=== PATIENT | female | born 1990 | race American Indian/Alaskan Native ===

== ENCOUNTER 2017-07-01 10:13 | Emergency (ER) | payer OTHER ==
[2017-07-01 10:24] VITALS: BP 146/82
[2017-07-01 11:16] LABS: Basophils % (Auto) 0.2 % (0.0-1.8); Eosinophils % (Auto) 0.1 % (0.0-4.3); Hematocrit 40.8 % (30.3-42.9); Hemoglobin 13.8 gm/dl (10.1-14.3); Lymphocytes # (Auto) 1.1 K/mm3 (1.2-5.4); Mean Corpuscular HGB Conc 34 % (30-34); Mean Corpuscular Hemoglobin 31 pg (28-32); Mean Corpuscular Volume 92 fl (79-97); Monocytes # (Auto) 0.3 K/mm3 (0.0-0.8); Monocytes % (Auto) 3.8 % (0.0-7.3); Platelet Count 415 K/mm3 (140-440); Red Blood Count 4.42 M/mm3 (3.65-5.03); Red Cell Distribution Width 14.1 % (13.2-15.2)
[2017-07-01 11:23] LABS: Bilirubin,Urine NEG (Negative); Blood,Urine MOD (Negative); Color,Urine Yellow (Yellow); Mucus,Urine 3+ /HPF
[2017-07-01 11:44] LABS: Alanine Aminotransferase 27 units/L (7-56); Albumin 4.7 g/dL (3.9-5); BUN/Creatinine Ratio 19; Blood Urea Nitrogen 13 mg/dL (7-17); Calcium 9.7 mg/dL (8.4-10.2); Hemolysis Index 7
--- NOTE | 2017-07-01 12:03 | Emergency Department Report ---
Blank Doc - Documentation Documentation: Patient presents to the emergency department for rash of her genital region along with some diffuse abdominal pain that has been present for 5 days. The patient states the rash is completely resolved now. She is sexually active and did not start using condoms until the rash appeared. Further workup will be done by a UBALDO
--- NOTE | 2017-07-01 12:12 | Emergency Department Report ---
Blank Doc - Documentation Documentation: Please disregard the patient referring to a rash in additional to area. That note was not meant for this patient. The patient's chief complaint is right upper quadrant and epigastric abdominal pain. Patient states she has a history of gallstones that was diagnosed last year and patient does not have her gallbladder removed because she was at that time. Patient states she' s had some right upper quadrant abdominal pain for the last month before the last 3 days and has become increasingly worse along with nausea vomiting. Patient denies fever or diarrhea. Care will be turned over to the UBALDO
[2017-07-01] MEDS ORDERED: MORPHINE IM ONE (12:41)
[2017-07-01] MEDS ORDERED: ZOFRAN ODT PO ONE (12:42)
--- NOTE | 2017-07-01 14:00 | Ultrasound Report ---
ULTRASOUND ABDOMEN LIMITED: TECHNIQUE: Transabdominal ultrasound with color Doppler interrogation. HISTORY: right upper quadrant abdominal pain. COMPARISON: none. FINDINGS: LIVER: Normal. BILIARY SYSTEM: There are multiple shadowing gallstones within the gallbladder. No abnormal distention, wall thickening or surrounding fluid. The CBD measures 3 mm. PANCREAS: Normal. RIGHT KIDNEY: Normal. PROXIMAL AORTA: Normal. ASCITES: None. IMPRESSION: Cholelithiasis.
--- NOTE | 2017-07-01 15:08 | Emergency Department Report ---
ED Abdominal Pain HPI - General Chief Complaint: Abdominal Pain Stated Complaint: VOMITING Time Seen by Provider: 07/01/17 11:52 Source: patient Mode of arrival: Wheelchair Limitations: No Limitations - History of Present Illness MD Complaint: abdominal pain Location: RUQ Migration to: no migration Severity scale (0 -10): 4 Quality: cramping, aching Consistency: intermittent Associated Symptoms: nausea, vomiting. denies: diarrhea, fever, chills, constipation - Related Data Previous Rx's Medication Instructions Recorded Last Taken Type Acetaminophen/Codeine [Tylenol 1 tab PO Q6H PRN #12 tab 07/01/17 Unknown Rx /Codeine # 3 tab] Ondansetron [Zofran ODT TAB] 8 mg PO Q12HR #40 tab.rapdis 07/01/17 Unknown Rx Allergies Allergy/AdvReac Type Severity Reaction Status Date / Time No Known Allergies Allergy Unverified 07/01/17 10:24 ED Review of Systems ROS: Stated complaint: VOMITING Other details as noted in HPI ED Past Medical Hx - Past Medical History Previous Medical History?: No - Surgical History Past Surgical History?: No - Social History Smoking Status: Current Every Day Smoker Substance Use Type: None, Alcohol - Medications Home Medications: Home Medications Medication Instructions Recorded Confirmed Last Taken Type Acetaminophen/Codeine [Tylenol 1 tab PO Q6H PRN #12 tab 07/01/17 Unknown Rx /Codeine # 3 tab] Ondansetron [Zofran ODT TAB] 8 mg PO Q12HR #40 tab.rapdis 07/01/17 Unknown Rx ED Physical Exam - General Limitations: No Limitations ED Course Vital Signs 07/01/17 10:20 Temperature 97.8 F Pulse Rate 72 Respiratory 16 Rate Blood Pressure 146/82 O2 Sat by Pulse 98 Oximetry ED Medical Decision Making - Lab Data Result diagrams: 07/01/17 10:52 07/01/17 10:52 - Radiology Data Radiology results: report reviewed, image reviewed ULTRASOUND ABDOMEN LIMITED: TECHNIQUE: Transabdominal ultrasound with color Doppler interrogation. HISTORY: right upper quadrant abdominal pain. COMPARISON: none. FINDINGS: LIVER: Normal. BILIARY SYSTEM: There are multiple shadowing gallstones within the gallbladder. No abnormal distention, wall thickening or surrounding fluid. The CBD measures 3 mm. PANCREAS: Normal. RIGHT KIDNEY: Normal. PROXIMAL AORTA: Normal. ASCITES: None. IMPRESSION: Cholelithiasis. Transcribed By: TTR Dictated By: IDA HUFF JR, MD Electronically Authenticated By: IDA HUFF JR, MD Signed Date/Time: 07/01/17 1351 Critical care attestation.: If time is entered above; I have spent that time in minutes in the direct care of this critically ill patient, excluding procedure time. ED Disposition Clinical Impression: Cholelithiasis Qualifiers: Cholelithiasis location: gallbladder Cholecystitis presence: without cholecystitis Biliary obstruction: without biliary obstruction Qualified Code(s) : K80.20 - Calculus of gallbladder without cholecystitis without obstruction Disposition: TO HOME OR SELFCARE Is pt being admited?: No Does the pt Need Aspirin: No Condition: Stable Instructions: Biliary Colic (ED), Abdominal Pain (ED) Additional Instructions: Make sure to follow up with the primary care physician as discussed. Take all your medications as you've been prescribed. If you have any worsening symptoms or develop new symptoms please return to ED immediately. Prescriptions: Acetaminophen/Codeine [Tylenol /Codeine # 3 tab] 1 tab PO Q6H PRN #12 tab PRN Reason: Pain Ondansetron [Zofran ODT TAB] 8 mg PO Q12HR #40 tab.rapdis Referrals: PRIMARY CARE, [Primary Care Provider] - 3-5 Days [facility] [Provider Group] - 3-5 Days [facility] [Provider Group] - 3-5 Days Forms: Accompanied Note, Work/School Release Form(ED) Time of Disposition: :18
[2017-07-01] MEDS ORDERED: NORCO 5/325 PO ONE (15:41)
== END 2017-07-01 15:50 | disposition home or self-care (01) ==
LOC: ED 10:13
DX: K80.20 Calculus of gallbladder without cholecystitis without obstruction (principal); F17.200 Nicotine dependence, unspecified, uncomplicated
CPT/HCPCS: 36415; 76705; 80053; 81001; 83690; 84703; 85025; 96372; 99284; J2270; Q0162

== ENCOUNTER 2017-07-17 16:56 | Emergency (ER) | payer SELFPAY ==
[2017-07-17 17:07] VITALS: BP 104/64
--- NOTE | 2017-07-17 18:22 | Emergency Department Report ---
ED Abdominal Pain HPI - General Chief Complaint: Abdominal Pain Stated Complaint: SEVERE ABD PAIN Time Seen by Provider: 07/17/17 18:22 Source: patient Mode of arrival: Ambulatory Limitations: No Limitations - History of Present Illness MD Complaint: abdominal pain - Related Data Previous Rx's Medication Instructions Recorded Last Taken Type Acetaminophen/Codeine [Tylenol 1 tab PO Q6H PRN #12 tab 07/01/17 Unknown Rx /Codeine # 3 tab] Ondansetron [Zofran ODT TAB] 8 mg PO Q12HR #40 tab.rapdis 07/01/17 Unknown Rx Allergies Allergy/AdvReac Type Severity Reaction Status Date / Time No Known Allergies Allergy Unverified 07/01/17 10:24 ED Review of Systems ROS: Stated complaint: SEVERE ABD PAIN Other details as noted in HPI ED Past Medical Hx - Past Medical History Additional medical history: Gallstones - Surgical History Past Surgical History?: No - Social History Smoking Status: Current Every Day Smoker Substance Use Type: None - Medications Home Medications: Home Medications Medication Instructions Recorded Confirmed Last Taken Type Acetaminophen/Codeine [Tylenol 1 tab PO Q6H PRN #12 tab 07/01/17 Unknown Rx /Codeine # 3 tab] Ondansetron [Zofran ODT TAB] 8 mg PO Q12HR #40 tab.rapdis 07/01/17 Unknown Rx ED Physical Exam - General Limitations: No Limitations ED Course Vital Signs 07/17/17 17:03 Temperature 98.6 F Pulse Rate 84 Blood Pressure 104/64 O2 Sat by Pulse 99 Oximetry Critical care attestation.: If time is entered above; I have spent that time in minutes in the direct care of this critically ill patient, excluding procedure time. ED Disposition Condition: Stable Instructions: Abdominal Pain (ED) Referrals: PRIMARY CARE, [Primary Care Provider] - 3-5 Days
[2017-07-17] MEDS ORDERED: ZOFRAN IV ONE (18:38)
[2017-07-17] MEDS ORDERED: NACL 0.9% 1000 ML 1,000 ML IV ONE (18:38)
[2017-07-17] MEDS ORDERED: MORPHINE IV ONE ×2 (18:39→21:05)
--- NOTE | 2017-07-17 18:41 | Emergency Department Report ---
Chief Complaint: Abdominal Pain Stated Complaint: SEVERE ABD PAIN Time Seen by Provider: 07/17/17 18:22 - HPI History of Present Illness: 26-year-old female past medical history cholelithiasis presents with complaint of epigastric pain. Patient states she was diagnosed with cholelithiasis approximately 3 weeks ago. States that she has been taking medicine for the pain but it is not completely subsided. Patient states that this episode intensified within the last 48 hours and has associated chills nausea and severe epigastric pain. Last menstrual period 07/06/17. Patient is awake alert and oriented 3. Pain currently 10/27 - ROS Review of Systems: Approximately 2-3 weeks of persistent epigastric pain and right upper quadrant pain - Exam Vital Signs: Vital Signs 07/17/17 17:03 Temperature 98.6 F Pulse Rate 84 Blood Pressure 104/64 O2 Sat by Pulse 99 Oximetry Physical Exam: Heart S1-S2, lungs clear to auscultation. Abdomen is tender in epigastric and right upper quadrant region. Positive Lomax sign MSE screening note: Focused history and physical exam performed. Due to findings the following was ordered: Screening Assessment/Plan/Differential Dx: Abdominal pain, biliary colic versus cholelithiasis versus pancreatitis 1- This initial assessment/diagnostic orders/clinical plan/ treatment(s) is/are subject to change based on pt's health status, clinical progression and re- assessment by fellow clinical providers in the ED. Further treatment and workup at subsequent clinical provers discretion. Patient/guardians urged not to elope from ED as their condition may be serious if not clinically assessed and managed. 2-abdominal labs order set, IV fluid, nothing by mouth, Zofran, analgesics 3-right upper quadrant ultrasound+CT with IV contrast 4-nothing by mouth for now ED Disposition for MSE Condition: Stable Instructions: Abdominal Pain (ED) Referrals: PRIMARY CARE, [Primary Care Provider] - 3-5 Days
[2017-07-17 18:57] LABS: Bilirubin,Urine NEG (Negative); Blood,Urine NEG (Negative); Color,Urine Straw (Yellow); HCG Qualitative,Urine Negative (Negative); Protein,Urine <15 mg/dL mg/dL (Negative); Urobilinogen,Urine < 2.0 mg/dL (<2.0); WBC,Urine < 1.0 /HPF (0.0-6.0)
[2017-07-17 19:03] LABS: Basophils % (Auto) 0.4 % (0.0-1.8); Eosinophils # (Auto) 0.2 K/mm3 (0.0-0.4); Eosinophils % (Auto) 1.9 % (0.0-4.3); Hematocrit 39.1 % (30.3-42.9); Hemoglobin 12.6 gm/dl (10.1-14.3); Lymphocytes # (Auto) 3.2 K/mm3 (1.2-5.4); Lymphocytes % (Auto) 28.1 % (13.4-35.0); Mean Corpuscular HGB Conc 32 % (30-34); Mean Corpuscular Hemoglobin 30 pg (28-32); Mean Corpuscular Volume 94 fl (79-97); Monocytes # (Auto) 0.7 K/mm3 (0.0-0.8); Monocytes % (Auto) 5.8 % (0.0-7.3); Platelet Count 527 K/mm3 (140-440); Red Blood Count 4.16 M/mm3 (3.65-5.03); Red Cell Distribution Width 13.7 % (13.2-15.2)
[2017-07-17 19:22] LABS: Alanine Aminotransferase 13 units/L (7-56); Albumin 4.7 g/dL (3.9-5); BUN/Creatinine Ratio 12; Blood Urea Nitrogen 7 mg/dL (7-17); Calcium 9.9 mg/dL (8.4-10.2); Hemolysis Index 4; Lipase 28 units/L (13-60)
[2017-07-17 19:31] LABS: Bilirubin,Direct < 0.2 mg/dL (0-0.2)
--- NOTE | 2017-07-17 20:54 | Emergency Department Report ---
ED Abdominal Pain HPI - General Chief Complaint: Abdominal Pain Stated Complaint: SEVERE ABD PAIN Time Seen by Provider: 07/17/17 18:22 Source: patient Mode of arrival: Ambulatory Limitations: No Limitations - History of Present Illness Initial Comments: This is a 26-year-old female with past medical history of cholelithiasis nontoxic, well nourished in appearance, no acute signs of distress presents to the ED with c/o of epigastric abdominal pain which radiates towards right flank region. Patient stated that she was diagnosed with cholelithiasis about 3 weeks ago and was taking Tylenol with Codeine which symptoms has resolved but patient finished her doses and pain is uncontrollable. Patient has associated symptoms of nausea, chills. Patient last motorcycle 07/06/2017. Patient denies any chest pain, shortness of breath, numbness, tingling, headache, stiff neck, or urinary symptoms. Patient denies any drug allergies. MD Complaint: abdominal pain -: days(s) (2) Location: RUQ, epigastric Radiation: R flank Migration to: no migration Severity: mild Severity scale (0 -10): 8 Quality: cramping, aching Consistency: constant Improves With: nothing Worsens With: nothing Associated Symptoms: nausea. denies: vomiting, diarrhea, fever, chills, constipation, dysuria, hematemesis, hematochezia, melena, hematuria, anorexia, syncope - Related Data Previous Rx's Medication Instructions Recorded Last Taken Type Acetaminophen/Codeine [Tylenol 1 tab PO Q6H PRN #12 tab 07/01/17 Unknown Rx /Codeine # 3 tab] Ondansetron [Zofran ODT TAB] 8 mg PO Q12HR #40 tab.rapdis 07/01/17 Unknown Rx Acetaminophen/Codeine [Tylenol 1 tab PO Q6H PRN #15 tab 07/17/17 Unknown Rx /Codeine # 3 tab] Ibuprofen [Motrin] 600 mg PO Q8H PRN #30 tablet 07/17/17 Unknown Rx Ondansetron [Zofran Odt] 4 mg PO Q8HR PRN #20 tab.rapdis 07/17/17 Unknown Rx Allergies Allergy/AdvReac Type Severity Reaction Status Date / Time No Known Allergies Allergy Unverified 07/01/17 10:24 ED Review of Systems ROS: Stated complaint: SEVERE ABD PAIN Other details as noted in HPI Constitutional: denies: chills, fever Eyes: denies: eye pain, eye discharge, vision change ENT: denies: ear pain, throat pain Respiratory: denies: cough, shortness of breath, wheezing Cardiovascular: denies: chest pain, palpitations Endocrine: no symptoms reported Gastrointestinal: abdominal pain, nausea. denies: vomiting, diarrhea Genitourinary: denies: urgency, dysuria, discharge Musculoskeletal: denies: back pain, joint swelling, arthralgia Skin: denies: rash, lesions Neurological: denies: headache, weakness, paresthesias Psychiatric: denies: anxiety, depression Hematological/Lymphatic: denies: easy bleeding, easy bruising ED Past Medical Hx - Past Medical History Additional medical history: Gallstones - Surgical History Past Surgical History?: No - Social History Smoking Status: Current Every Day Smoker Substance Use Type: None - Medications Home Medications: Home Medications Medication Instructions Recorded Confirmed Last Taken Type Acetaminophen/Codeine [Tylenol 1 tab PO Q6H PRN #12 tab 07/01/17 Unknown Rx /Codeine # 3 tab] Ondansetron [Zofran ODT TAB] 8 mg PO Q12HR #40 tab.rapdis 07/01/17 Unknown Rx Acetaminophen/Codeine [Tylenol 1 tab PO Q6H PRN #15 tab 07/17/17 Unknown Rx /Codeine # 3 tab] Ibuprofen [Motrin] 600 mg PO Q8H PRN #30 tablet 07/17/17 Unknown Rx Ondansetron [Zofran Odt] 4 mg PO Q8HR PRN #20 tab.rapdis 07/17/17 Unknown Rx ED Physical Exam - General Limitations: No Limitations General appearance: alert, in no apparent distress - Head Head exam: Present: atraumatic, normocephalic - Eye Eye exam: Present: normal appearance Pupils: Present: normal accommodation - ENT ENT exam: Present: normal exam, mucous membranes moist - Neck Neck exam: Present: normal inspection, full ROM. Absent: tenderness, meningismus - Respiratory Respiratory exam: Present: normal lung sounds bilaterally. Absent: respiratory distress, wheezes, rales, rhonchi, stridor - Cardiovascular Cardiovascular Exam: Present: regular rate, normal rhythm. Absent: systolic murmur, diastolic murmur, rubs, gallop - GI/Abdominal GI/Abdominal exam: Present: soft, tenderness (Right upper quad), normal bowel sounds. Absent: distended, guarding, rebound, rigid, diminished bowel sounds - Expanded GI/Abdominal Exam Expanded GI/Abdominal exam: Absent: psoas sign, obturator sign, heel tap sign, Lomax's sign, Rovsing's sign, tenderness at Mcburney's Point, ascites - Rectal Rectal exam: Present: deferred - Extremities Exam Extremities exam: Present: normal inspection, full ROM, normal capillary refill - Back Exam Back exam: Present: normal inspection, full ROM. Absent: tenderness, CVA tenderness (R), CVA tenderness (L), muscle spasm, paraspinal tenderness, vertebral tenderness, rash noted - Neurological Exam Neurological exam: Present: alert, oriented X3, normal gait - Psychiatric Psychiatric exam: Present: normal affect, normal mood - Skin Skin exam: Present: warm, dry, intact, normal color. Absent: rash ED Course Vital Signs 07/17/17 07/17/17 07/17/17 17:03 19:42 20:12 Temperature 98.6 F Pulse Rate 84 Respiratory 18 18 Rate Blood Pressure 104/64 O2 Sat by Pulse 99 Oximetry 07/17/17 21:05 Temperature Pulse Rate Respiratory 18 Rate Blood Pressure O2 Sat by Pulse Oximetry - Reevaluation(s) Reevaluation #1: 07/17/17 20:54 Patient is speaking in full sentences with no signs of distress noted. ED Medical Decision Making - Lab Data Result diagrams: 07/17/17 18:45 07/17/17 18:45 - Medical Decision Making This is a 26-year-old female that presents with cholelithiasis. Patient stable was examined by me. There is slight abdominal tenderness. No rebound tenderness. Labs obtained. CT abdomen/pelvis with contrast obtained and dictated by the radiologist. Patient received 1L of normal saline, morphine, and zofran which patient stated symptoms has resolved and subsided. A by mouth challenge of apple juice had been obtained and patient tolerated well with no nausea vomiting. Patient discharged with Zofran and Tylenol 3. Patient stated that she will not drive home after discharge and a family member will drive patient home due to possible drowsiness of morphine. Patient was instructed to increase hydration. Patient was referred to Follow-up with a primary care/GI doctor in 3-5 days or if symptoms worsen and continue return to emergency room as soon as possible. At time of discharge, the patient does not seem toxic or ill in appearance. No acute signs of distress noted. Patient agrees to discharge treatment plan of care. No further questions noted by the patient. Critical care attestation.: If time is entered above; I have spent that time in minutes in the direct care of this critically ill patient, excluding procedure time. ED Disposition Clinical Impression: Cholelithiasis Qualifiers: Cholelithiasis location: gallbladder Cholecystitis presence: without cholecystitis Biliary obstruction: with biliary obstruction Qualified Code(s): K80.21 - Calculus of gallbladder without cholecystitis with obstruction Disposition: TO HOME OR SELFCARE Is pt being admited?: No Does the pt Need Aspirin: No Condition: Stable Instructions: Acetaminophen/Codeine (By mouth), Ondansetron (By mouth), Abdominal Pain (ED) Additional Instructions: Follow-up with a primary care/GI doctor in 3-5 days or if symptoms worsen and continue return to emergency room as soon as possible. Prescriptions: Acetaminophen/Codeine [Tylenol /Codeine # 3 tab] 1 tab PO Q6H PRN #15 tab PRN Reason: Pain Ibuprofen [Motrin] 600 mg PO Q8H PRN #30 tablet PRN Reason: Pain Ondansetron [Zofran Odt] 4 mg PO Q8HR PRN #20 tab.rapdis PRN Reason: Nausea Referrals: PRIMARY CAREMD [Primary Care Provider] - 3-5 Days MARCO PEREZ MD [Staff Physician] - 3-5 Days NARESH FERREIRA MD [Staff Physician] - 3-5 Days DENILSON OBRIEN MD [Staff Physician] - 3-5 Days [facility] [Provider Group] - 3-5 Days [facility] [Outside] - 3-5 Days [facility] [Outside] - 3-5 Days Forms: Work/School Release Form(ED)
[2017-07-17] MEDS ORDERED: MORPHINE ONE (21:00)
--- NOTE | 2017-07-21 14:18 | Cat Scan Report ---
FINAL REPORT PROCEDURE: CT ABDOMEN PELVIS W CON TECHNIQUE: Computerized axial tomography of the abdomen and pelvis was performed after the IV injection of iodinated nonionic contrast. HISTORY: cholelithiasis, epigastric pain? pancreatitis COMPARISON: No prior studies are available for comparison. FINDINGS: Visualized lower thorax: No significant abnormality. Liver: There is fatty infiltration of the liver along the falciform ligament. There is no mass.. Spleen: Normal size and attenuation. Gallbladder and biliary system: There is cholelithiasis. There is no specific evidence of cholecystitis or biliary ductal dilatation.. Pancreas: Normal. Adrenals: Normal. Kidneys: Normal. GI tract: There is no bowel obstruction, colitis or enteritis. The appendix is normal.. Lymph nodes and mesentery: Normal. Vasculature: Normal. Bladder: Normal. Reproductive organs: Uterus is unremarkable. There is an involuting cyst in the left ovary measuring 11 millimeters.. Peritoneum: There is no ascites or free air, abscess or adenopathy.. Musculoskeletal structures: No significant abnormality. Other: There is a ventral hernia without evidence of bowel incarceration.. IMPRESSION: There is fatty infiltration of the liver along the falciform ligament. There is no mass.. There is cholelithiasis. There is no specific evidence of cholecystitis or biliary ductal dilatation.. There is no bowel obstruction, colitis or enteritis. The appendix is normal.. Uterus is unremarkable. There is an involuting cyst in the left ovary measuring 11 millimeters.. There is no ascites or free air, abscess or adenopathy.. There is a ventral hernia without evidence of bowel incarceration..
== END 2017-07-17 22:33 | disposition home or self-care (01) ==
LOC: ED 16:56
DX: K80.21 Calculus of gallbladder without cholecystitis with obstruction (principal); F17.200 Nicotine dependence, unspecified, uncomplicated
CPT/HCPCS: 36415; 74177; 80048; 80074; 81001; 81025; 82140; 82150; 83690; 85025; 96361; 96374; 96375; 99284; J2270; J2405; J7030; Q9967

== ENCOUNTER 2017-09-30 17:55 | Emergency (ER) | payer SELFPAY ==
[2017-09-30] MEDS ORDERED: NACL 0.9% 1000 ML 1,000 ML IV ONE (18:33)
[2017-09-30 19:19] LABS: Basophils # (Auto) 0.1 K/mm3 (0.0-0.1); Basophils % (Auto) 0.7 % (0.0-1.8); Eosinophils # (Auto) 0.1 K/mm3 (0.0-0.4); Eosinophils % (Auto) 0.7 % (0.0-4.3); Hemoglobin 13.6 gm/dl (10.1-14.3); Lymphocytes % (Auto) 24.8 % (13.4-35.0); Mean Corpuscular HGB Conc 33 % (30-34); Mean Corpuscular Hemoglobin 30 pg (28-32); Mean Corpuscular Volume 91 fl (79-97); Monocytes # (Auto) 0.6 K/mm3 (0.0-0.8); Monocytes % (Auto) 7.5 % (0.0-7.3); Platelet Count 409 K/mm3 (140-440); Red Cell Distribution Width 13.1 % (13.2-15.2)
[2017-09-30 19:32] LABS: Alanine Aminotransferase 53 units/L (7-56); BUN/Creatinine Ratio 20; Blood Urea Nitrogen 12 mg/dL (7-17); Calcium 10.4 mg/dL (8.4-10.2); Hemolysis Index 17
[2017-09-30] MEDS ORDERED: TYLENOL PO ONE (21:25)
[2017-09-30] MEDS ORDERED: ALUM-MAG HYDROX-SIMETH 200-200-20MG/5ML PO ONE (21:25)
[2017-09-30] MEDS ORDERED: LIDOCAINE VISCOUS 2% PO ONE (21:25)
[2017-09-30] MEDS ORDERED: ZOFRAN ODT PO ONE (21:32)
--- NOTE | 2017-09-30 22:18 | Emergency Department Report ---
ED General Adult HPI - General Chief complaint: Abdominal Pain Stated complaint: N/V 6XDAYS Time Seen by Provider: 09/30/17 21:24 Source: patient, EMS Mode of arrival: Wheelchair Limitations: No Limitations - History of Present Illness Initial comments: Nausea, vomiting, and at upper abdominal pain for the past 5 days. Pain is intermittent. Unable to eat or keep anything down. No urinary complaints. She is currently on her menstrual period. Patient did have a cholecystectomy one month ago for kidney stones. Has not had a follow-up appointment yet. Last bowel movement was 5 days ago, but she still has flatus. No diarrhea, sick contacts, recent traveling/antibiotics. She is currently on her menstrual period. Severity scale (0 -10): 10 - Related Data Previous Rx's Medication Instructions Recorded Last Taken Type Acetaminophen/Codeine [Tylenol 1 tab PO Q6H PRN #12 tab 07/01/17 Unknown Rx /Codeine # 3 tab] Ondansetron [Zofran ODT TAB] 8 mg PO Q12HR #40 tab.rapdis 07/01/17 Unknown Rx Acetaminophen/Codeine [Tylenol 1 tab PO Q6H PRN #15 tab 07/17/17 Unknown Rx /Codeine # 3 tab] Ibuprofen [Motrin] 600 mg PO Q8H PRN #30 tablet 07/17/17 Unknown Rx Ondansetron [Zofran ODT TAB] 4 mg PO Q8HR PRN #20 tab.rapdis 10/01/17 Unknown Rx Promethazine [Phenergan] 25 mg OR Q6HR PRN #15 supp.rect 10/01/17 Unknown Rx cephALEXin [Keflex] 500 mg PO Q8HR #30 cap 10/01/17 Unknown Rx traMADol [Ultram 50 MG tab] 50 mg PO Q6HR PRN #10 tablet 10/01/17 Unknown Rx Allergies Allergy/AdvReac Type Severity Reaction Status Date / Time No Known Allergies Allergy Unverified 07/01/17 10:24 ED Review of Systems ROS: Stated complaint: N/V 6XDAYS Other details as noted in HPI Comment: All other systems reviewed and negative Gastrointestinal: abdominal pain, nausea, vomiting ED Past Medical Hx - Past Medical History Previous Medical History?: No Additional medical history: Gallstones - Surgical History Hx Cholecystectomy: Yes - Social History Smoking Status: Never Smoker Substance Use Type: None - Medications Home Medications: Home Medications Medication Instructions Recorded Confirmed Last Taken Type Acetaminophen/Codeine [Tylenol 1 tab PO Q6H PRN #12 tab 07/01/17 Unknown Rx /Codeine # 3 tab] Ondansetron [Zofran ODT TAB] 8 mg PO Q12HR #40 tab.rapdis 07/01/17 Unknown Rx Acetaminophen/Codeine [Tylenol 1 tab PO Q6H PRN #15 tab 07/17/17 Unknown Rx /Codeine # 3 tab] Ibuprofen [Motrin] 600 mg PO Q8H PRN #30 tablet 07/17/17 Unknown Rx Ondansetron [Zofran ODT TAB] 4 mg PO Q8HR PRN #20 tab.rapdis 10/01/17 Unknown Rx Promethazine [Phenergan] 25 mg OR Q6HR PRN #15 supp.rect 10/01/17 Unknown Rx cephALEXin [Keflex] 500 mg PO Q8HR #30 cap 10/01/17 Unknown Rx traMADol [Ultram 50 MG tab] 50 mg PO Q6HR PRN #10 tablet 10/01/17 Unknown Rx ED Physical Exam - General Limitations: No Limitations General appearance: alert, in no apparent distress - Head Head exam: Present: atraumatic, normocephalic - Eye Eye exam: Present: normal appearance - ENT ENT exam: Present: mucous membranes dry - Neck Neck exam: Present: normal inspection - Respiratory Respiratory exam: Present: normal lung sounds bilaterally. Absent: respiratory distress - Cardiovascular Cardiovascular Exam: Present: regular rate, normal rhythm. Absent: systolic murmur, diastolic murmur, rubs, gallop - GI/Abdominal GI/Abdominal exam: Present: soft, normal bowel sounds. Absent: distended, tenderness, guarding, rebound - Extremities Exam Extremities exam: Present: normal inspection - Back Exam Back exam: Present: normal inspection - Neurological Exam Neurological exam: Present: alert, oriented X3 - Psychiatric Psychiatric exam: Present: normal affect, normal mood - Skin Skin exam: Present: warm, dry, intact, normal color. Absent: rash ED Course Vital Signs 09/30/17 09/30/17 09/30/17 18:30 21:35 21:48 Temperature 98.5 F 98.8 F Pulse Rate 68 68 Respiratory 18 16 16 Rate Blood Pressure 131/87 Blood Pressure 146/89 [Right] O2 Sat by Pulse 100 99 Oximetry 09/30/17 09/30/17 09/30/17 22:48 22:50 23:45 Temperature Pulse Rate 68 Respiratory 16 16 16 Rate Blood Pressure Blood Pressure 111/65 [Right] O2 Sat by Pulse 96 Oximetry 09/30/17 10/01/17 10/01/17 23:50 02:00 03:00 Temperature Pulse Rate 65 Respiratory 16 14 16 Rate Blood Pressure 138/80 Blood Pressure [Right] O2 Sat by Pulse 98 Oximetry - Reevaluation(s) Reevaluation #1: Pt feels better on re-eval. Tolerating PO. Urinalysis shows concerns for UTI. Given systemic symptoms, she most likely is developing pyelo. CT a/p shows likely uterine fibroid. Pt will be sent home with pcp f/u, tramadol/keflex/ zofran/phenergan. 10/01/17 03:25 ED Medical Decision Making - Lab Data Result diagrams: 09/30/17 19:01 09/30/17 19:01 - Medical Decision Making 26-year-old female with past medical history of cholecystectomy presents to the ER with GI complaints. Vital signs are stable. Patient is well-appearing. No appreciable abdominal tenderness on physical exam. Patient appears to be mildly dehydrated given dry oral mucosa. Lab work is unremarkable. Believe presentation to be related to viral gastritis. Will manage conservatively. Has been given gi cocktail, tylenol, and AXR. Low suspicion for SBO. - Differential Diagnosis SBO, gastritis, gastroenteritis, pancreatitis, biliary leak, PE Critical care attestation.: If time is entered above; I have spent that time in minutes in the direct care of this critically ill patient, excluding procedure time. ED Disposition Clinical Impression: UTI (urinary tract infection), Vomiting Disposition: DC-01 TO HOME OR SELFCARE Is pt being admited?: No Does the pt Need Aspirin: No Condition: Stable Instructions: Acute Pyelonephritis (ED) Additional Instructions: Your CT scan today shows likely uterine fibroid. You should have a repeat scan or ultrasound done in 2-4 months to confirm this. Prescriptions: cephALEXin [Keflex] 500 mg PO Q8HR #30 cap Ondansetron [Zofran ODT TAB] 4 mg PO Q8HR PRN #20 tab.rapdis PRN Reason: Nausea Promethazine [Phenergan] 25 mg OR Q6HR PRN #15 supp.rect PRN Reason: Nausea And Vomiting traMADol [Ultram 50 MG tab] 50 mg PO Q6HR PRN #10 tablet PRN Reason: Pain Referrals: RODRIGO BAXTER MD [Primary Care Provider] - 3-5 Days
[2017-09-30] MEDS ORDERED: ULTRAM PO ONE (22:40)
--- NOTE | 2017-09-30 22:48 | XRay Report ---
FINAL REPORT PROCEDURE: XR ABDOMEN 1V AP TECHNIQUE: Abdominal radiograph, single supine AP view. HISTORY: abd pain COMPARISON: No prior studies are available for comparison. FINDINGS: Bowel gas pattern:Nonobstructive. Masses or calcifications:None. Bony structures:No significant abnormality. Other:None. IMPRESSION: No acute abnormality
[2017-09-30 23:28] LABS: Bilirubin,Urine NEG (Negative); Blood,Urine MOD (Negative); Color,Urine Red (Yellow); Mucus,Urine 2+ /HPF; RBC,Urine > 182.0 /HPF (0.0-6.0); Urobilinogen,Urine < 2.0 mg/dL (<2.0)
[2017-10-01] MEDS ORDERED: PHENERGAN PO ONE (00:54)
[2017-10-01] MEDS ORDERED: KEFLEX PO ONE (00:55)
--- NOTE | 2017-10-01 01:29 | Cat Scan Report ---
FINAL REPORT EXAM: CT ABDOMEN PELVIS WO CON HISTORY: abdominal pain, c/f kidney stone COMPARISON: CT of the abdomen and pelvis from June 2017. TECHNIQUE: Contiguous axial images were obtained. Additional sagittal and coronal reformatted images were obtained. FINDINGS: Lung bases are clear. Gallbladder surgically absent. Mild focal fatty infiltration of the liver along the falciform ligament. Spleen, pancreas, adrenal glands are unremarkable. No nephrolithiasis or hydronephrosis. Aorta and IVC are normal in caliber. No distal ureteral urinary bladder calculi. Adjacent to the left fundal margin the uterus, there is a soft tissue nodular structure measuring 1.7 x 1.1 centimeters in axial dimension. This is suspect represent exophytic subserosal fibroid (series 2, image 114).. Right ovary is grossly unremarkable. Dominant follicle left ovary measuring 1.0 x 1.7 centimeters. No free fluid or lymphadenopathy in the pelvic cavity. Large and small bowel loops normal in caliber. No focal inflammatory changes of the bowel. Appendix is not visualized. However, there is no pericecal stranding or fluid to suggest acute inflammation. Lumbar vertebral body heights are preserved. Bony pelvis is grossly intact. IMPRESSION: 1.1 x 1.2 centimeter soft tissue structure adjacent to the left fundal margin the uterus. This is suspect represent exophytic subserosal fibroid. Follow-up CT of the abdomen pelvis with contrast on a nonemergent basis could be performed to confirm this arises from the uterus rather than representing an isolated soft tissue nodule. Or no adjacent fat stranding or fluid to suggest inflammation of the structure. Otherwise, no gross focal inflammatory changes of the abdomen and pelvis. No obstructive uropathy urolithiasis. Large and small bowel loops normal in caliber. Appendix is not visualized. However, there is no pericecal stranding or fluid to suggest acute inflammation. Gallbladder surgically absent.
[2017-10-01] MEDS ORDERED: TYLENOL PO ONE (01:30)
[2017-10-01] MEDS ORDERED: MOTRIN PO ONE (01:30)
[2017-10-01 02:30] VITALS: BP 138/80
== END 2017-10-01 04:13 | disposition home or self-care (01) ==
LOC: ED 17:55
DX: N39.0 Urinary tract infection, site not specified (principal); Z90.49 Acquired absence of other specified parts of digestive tract
CPT/HCPCS: 36415; 74018; 74176; 80053; 81001; 84703; 85025; Q0162; Q0169